=== PATIENT | female | born 1995 | race Hispanic/Latino ===

== ENCOUNTER 2020-06-18 09:50 | Outpatient (CLI) | payer OTHER ==
[2020-06-18 18:19] LABS: SARS-CoV-2 MS2 Positive; SARS-CoV-2 N Gene Negative; SARS-CoV-2 S Gene Negative; SARS-CoV-2 by NAA Not Detected (NotDetected); SARS-CoV-2 orf1ab Negative
== END 2020-06-18 09:51 | disposition home or self-care (01) ==
LOC: LABBT 09:50
PROVIDERS: ATTEND Obstetrics & Gynecology
DX: Z01.812 Encounter for preprocedural laboratory examination (principal); Z20.828 Contact with and (suspected) exposure to other viral communicable diseases
CPT/HCPCS: 87635; U0003

== ENCOUNTER 2020-06-21 09:07 | Day surgery (SDC) | payer OTHER ==
[2020-06-21 09:47] VITALS: BP 121/74; BMI 24.7
[2020-06-21] MEDS ORDERED: Iron Sucrose Complex 500 MG in Sodium Chloride 0.9% 250 ML 250 ML IVPB SCH (11:00)
[2020-06-21] MEDS ORDERED: Acetaminophen 500 MG TAB PO SCH (11:00)
== END 2020-06-21 15:53 | disposition home or self-care (01) ==
LOC: L&D/OP 09:07
PROVIDERS: ATTEND Obstetrics & Gynecology
DX: O99.013 Anemia complicating pregnancy, third trimester (principal); D64.9 Anemia, unspecified; Z3A.34 34 weeks gestation of pregnancy
CPT/HCPCS: 96361; 96365; 96366; 99282; J1756; J7050

== ENCOUNTER 2020-06-21 17:16 | Day surgery (SDC) | payer OTHER ==
[2020-06-21] MEDS ORDERED: hydrALAZINE 20 MG/ML VIAL SLOW IVP PRN (17:58)
--- NOTE | 2020-06-21 17:58 | PDOC.BPN ---
- Brief Progress Note Patient seen. See dictation. Stable for DC home.
--- NOTE | 2020-06-21 18:30 | PRG ---
DATE OF SERVICE: 06/21/2020 I evaluated the patient around 1740 until now. The patient is seen at bedside. CHIEF COMPLAINT: Small rash on her inner right ankle that is now resolved (this is after iron infusion earlier today). I evaluated this patient in LDR 6 along with Rosamaria, the patient's nurse. In brief, this patient called Labor and Delivery after she left Labor and Delivery around 1553 after IV iron infusion ordered by another physician. She received ferrous sucrose. This patient called because she was having a small rash on her inner ankle and she was concerned if this was normal or not. The nurse who took that call advised her to return to Labor and Delivery just for evaluation. The patient is clinically stable and there is no widespread rash and the rash that she initially saw on the ankle is now resolved. I did see the patient at bedside and she was in no acute distress. There was no contractions. No vaginal bleeding. So, I did not perform a pelvic exam. I asked our charge nurse if there was any specific protocol when patient return for rash after iron infusion and unaware of any, we opted to be conservative and just check her O2 saturation and her blood pressure. I discussed with family that receiving iron IV can trigger a small histamine release similar to blood products and can give a little rash at times, but she is in no acute distress or eminent risk based on the information that we have now. The patient and her family member voiced concern about getting another charge for this visit and I told him that I understood and that this was not a formal triage visit and that I would not submit any bill statement for this because this is just a well check after her IV iron infusion. Job ID: [id number]
== END 2020-06-21 18:01 | disposition home or self-care (01) ==
LOC: L&D/OP 17:16
PROVIDERS: ATTEND Obstetrics & Gynecology
DX: O99.891 Other specified diseases and conditions complicating pregnancy (principal); R21 Rash and other nonspecific skin eruption; Z3A.34 34 weeks gestation of pregnancy
CPT/HCPCS: 99281

== ENCOUNTER 2020-08-01 10:43 | Outpatient (CLI) | payer OTHER, SELFPAY ==
[2020-08-01 22:15] LABS: SARS-CoV-2 PCR by NAA Not Detected (NotDetected)
== END 2020-08-01 10:44 | disposition home or self-care (01) ==
LOC: LABBT 10:43
PROVIDERS: ATTEND Obstetrics & Gynecology
DX: Z01.812 Encounter for preprocedural laboratory examination (principal); Z20.822 Contact with and (suspected) exposure to COVID-19
CPT/HCPCS: 87635; U0003; U0005

== ENCOUNTER 2020-08-05 00:14 | Inpatient (IN) | payer OTHER, SELFPAY ==
[2020-08-05 01:18] VITALS: BMI 25.6
[2020-08-05] MEDS ORDERED: NS / Oxytocin 40 units/1000ml 1,000 ML IV PRN (03:49)
[2020-08-05] MEDS ORDERED: Lidocaine 1% (PF) 30 ML VIAL SC PRN (03:49)
[2020-08-05] MEDS ORDERED: HYDROcodone/Acetaminophen 5/325 mg Tablet PO PRN ×3 (03:49→19:38)
[2020-08-05] MEDS ORDERED: Ibuprofen 800 MG TAB PO PRN (03:49)
[2020-08-05] MEDS ORDERED: Promethazine HCl 25 MG/ML VIAL IM PRN ×4 (03:49→22:45)
[2020-08-05] MEDS ORDERED: Ondansetron PF 4 MG/2 ML Vial IVP PRN ×4 (03:49→22:45)
[2020-08-05] MEDS ORDERED: Butorphanol Tartrate 1 MG/ML VIAL SLOW IVP PRN (03:49)
[2020-08-05] MEDS ORDERED: hydrALAZINE 20 MG/ML VIAL SLOW IVP PRN ×2 (03:49→19:38)
--- NOTE | 2020-08-05 03:59 | PDOC.LDHP ---
Labor and Delivery H&P Chief complaint: contractions HPI: Patient of Dr Mcguire EGA: 40 weeks 3 days 25 yo SAB2 here with irregular CTX. CTX are every 3-7 minutes, irregular. Good FM, no vb, no LOF. No recent trauma. Denies issues. Was scheduled tomorrow ion office for balloon cervical ripening. Review of Systems: Complete ROS performed and as per HPI. General: no fevers, no chills Pulmonary: no SOB Cardio: no chest pain Neuro: no headaches or visual changes Extremities: no calf pain Current gestational age (weeks): 40 (3 days) Dating criteria: last menstrual period Grav: 3 Para: 0 OB History Details: SAB x 2...one with cytotec RX and the other spont passage Current complications: none Abnormal US findings: No Past Medical History: None Current medications: pre-colin vitamins Previous surgical history: none Allergies/Adverse Reactions: Allergies Allergy/AdvReac Type Severity Reaction Status Date / Time No Known Allergies Allergy Unverified 06/21/20 09:48 - Physical Exam Vital signs reviewed and normal: yes (130/70s 90s 18 afebrile) General: NAD, resting Lungs: nonlabored breathing Abdomen: gravid (s=d; EFW about 6 #) - Vaginal Exam cm dilated: 3 Effacement: 75% Station: -1 - Assessment L&D Assessment: term patient in labor (Full term, latent labor, irregular CTX. GBS neg) - Plan Plan: admit to L&D, labor augmentation if indicated (start at 0600), informed consent obtained, anesthesia consult for pain management, other (I will notify Dr Mcguire at 0600. I have seent he patient at bedside. POC reviewed with her and partner.)
[2020-08-05] MEDS: Lactated Ringer's 1,000 ML IV SCH ×5 (05:11→21:00)
[2020-08-05 05:17] LABS: Hemoglobin 9.5 g/dL (12.0-16.0); Mean Corpuscular HGB CONC 31.7 g/dL (32.0-36.0); Mean Corpuscular Hemoglobin 22.6 pg (27.0-31.0); Mean Corpuscular Volume 71.1 fL (78.0-98.0); Mean Platelet Volume 5.9 fL (7.4-10.4); Platelet Count 218 thou/uL (130-400); RBC Distribution Width 24.9 % (11.5-14.5); Red Blood Cell (RBC) Count 4.19 mill/uL (4.20-5.40); White Blood Cell (WBC) Count 10.4 thou/uL (4.8-10.8)
[2020-08-05 05:48] LABS: Syphilis Antibody Nonreactive (Nonreactive); Syphilis Antibody Index 0.02 S/CO (<1.00 Non-Reactive)
[2020-08-05 05:49] LABS: HBSAg Index 0.17 S/CO (0-0.99); HIV (1/2) Antibody/Antigen Non-Reactive (NonReactive); HIV 1/2 INDEX 0.08 S/CO (<1.00); Hep B Surf Ag Non-Reactive S/CO (NonReactive)
[2020-08-05] MEDS ORDERED: Fentanyl 4 mcg/Bup 0.1% Cadd 100 ML ONE (09:12)
[2020-08-05] MEDS ORDERED: Bupivacaine HCl 0.25%/Epi 0.0005/PF 10 ML VIAL FS ONE (09:48)
[2020-08-05] MEDS ORDERED: Bupivacaine/Epinephrine 0.5% 10 ML VIAL ONE (09:48)
[2020-08-05] MEDS ORDERED: Lactated Ringer's 500 ML IV PRN (10:09)
[2020-08-05] MEDS ORDERED: Acetaminophen 325 MG TAB PO PRN (10:09)
[2020-08-05] MEDS ORDERED: ePHEDrine 50 MG/ML VIAL SLOW IVP PRN (10:09)
[2020-08-05] MEDS ORDERED: Naloxone HCl 0.4 mg/ml Vial IVP PRN ×2 (10:09)
[2020-08-05] MEDS ORDERED: diphenhydrAMINE 50 MG/ML VIAL IVP PRN ×2 (10:09→22:45)
[2020-08-05] MEDS ORDERED: Fentanyl 4 mcg/Bupivacaine 0.1% Cassette 100 ML EPIDURAL SCH (10:15)
[2020-08-05] MEDS ORDERED: Communication Order-Pharmacy FS SCH (10:15)
[2020-08-05] MEDS ORDERED: Dextrose 5%-Lactated Ringers 1,000 ML IV SCH (15:30)
[2020-08-05] MEDS ORDERED: Bicitra 30 ML UDCUP PO PRN (16:38)
[2020-08-05] MEDS ORDERED: Famotidine/PF 20 mg/2ml Vial SLOW IVP PRN (16:38)
[2020-08-05] MEDS ORDERED: Azithromycin 500 MG VIAL ONE (16:50)
[2020-08-05] MEDS ORDERED: Bicitra 30 ML UDCUP ONE (16:50)
[2020-08-05] MEDS ORDERED: CEFAZOLIN 2 GM in Premix Bag 1 BAG IVPB SCH (17:00)
[2020-08-05] MEDS ORDERED: Azithromycin 500 MG in Sodium Chloride 0.9% 250 ML 250 ML IVPB SCH (17:00)
[2020-08-05] MEDS ORDERED: Morphine PF 10 MG/10 ML VIAL ONE (17:26)
[2020-08-05] MEDS ORDERED: Oxytocin 10 UNITS/ML VIAL ONE (17:27)
[2020-08-05] MEDS ORDERED: Ketorolac Tromethamine 30 MG/ML VIAL ONE (17:27)
[2020-08-05] MEDS ORDERED: Ondansetron PF 4 MG/2 ML Vial ONE (17:27)
[2020-08-05] MEDS ORDERED: Dexamethasone 4 mg/ml Vial ONE (17:27)
[2020-08-05] MEDS ORDERED: Fentanyl 100 MCG/2 ML VIAL ONE (17:33)
--- NOTE | 2020-08-05 17:36 | PRG ---
DATE OF SERVICE: 08/05/2020 TIME OF SERVICE: 1630 hours. SUBJECTIVE: Ms. Caicedo presented this morning in active labor. She had an AROM at approximately 0830 at 5 to 6 cm, 80% effaced, -1. She was noted to have thin meconium at that time. Since then with Pitocin, really never been able to get over more than 4 mU/min secondary to deceleration. She has had a couple of isolated incidents of prolonged variable decelerations, would return to baseline. She has had some accelerations and some prolonged periods of category II tracing. OBJECTIVE: On exam now, she is a 6 cm, 80%, and really -1 station. The infant seems to be occiput transverse and has really made essentially no progress in approximately 8 hours. IMPRESSION: 1. Failure to dilate at 6 cm. 2. Thin meconium. 3. Category II heart rate tracing . PLAN: We will go ahead and proceed with primary delivery. We will administer appropriate antibiotic prophylaxis plus Zithromax and Ancef and apply SCDs. The patient understands treatment plan. Job ID: [id number]
[2020-08-05] MEDS ORDERED: PHENYLEPHRINE-NS 100 MCG/ML 10 ML SYRINGE ONE (17:45)
[2020-08-05] MEDS ORDERED: Promethazine HCl 25 MG/ML VIAL ONE (17:46)
--- NOTE | 2020-08-05 18:31 | OP ---
DATE OF PROCEDURE: 08/05/2020 TIME OF SERVICE: 1745. PREOPERATIVE DIAGNOSES: 1. Failure to progress. 2. Thin meconium. 3. Category 2 heart rate tracing at term. POSTOPERATIVE DIAGNOSES: 1. Failure to progress. 2. Thin meconium. 3. Category 2 heart rate tracing at term. 4. Moderate to thick meconium noted at hysterotomy with nuchal cord x1. PROCEDURE PERFORMED: Primary low-transverse section without extension. DINKEY OPERATOR SLAG: Shyann England, PGY-3, ANESTHESIA: Epidural. QUANTITATIVE BLOOD LOSS: Pending. MEDICATIONS: 2 g Ancef and 500 of Zithromax preincision, DVT prophylaxis with SCDs. OPERATIVE FINDINGS: 1. Vigorous female , cephalic presentation, Apgars and weight pending, to nursery. 2. Meconium is noted. 3. Placenta delivered intact, grossly normal. 4. Normal-appearing uterus, tubes, and ovaries bilaterally. 5. Hemostasis. 6. Clear urine and correct counts at the end the procedure. DISPOSITION: Recovery room in good condition. DESCRIPTION OF PROCEDURE: After obtaining appropriate informed consent, she was taken to the operating room. She was prepped and draped. An epidural was dosed to appropriate level. A Pfannenstiel incision was made, carried down to the fascia in midline sharply, superiorly and laterally with curved Rebollar scissors. Rectus dissected off sharply, superiorly and inferiorly, divided in midline. Peritoneum entered bluntly, taking care to avoid trauma to the underlying vessels. Osvaldo O retractor was placed inside. Vesicouterine peritoneal fold was identified. Low-transverse hysterotomy was made at this level. The infant's head was noted to be really not engaged well in the pelvis. It was elevated to the hysterotomy with ease and the rest of the delivered, suctioned, cord clamped and cut, handed off the team in attendance. Usual cord blood sample obtained. Placenta removed manually. Uterus exteriorized, curetted out with a dry laparotomy sponge, and reintroduced in the abdominal cavity. The hysterotomy was noted to be without extension and closed using a running locking #1 Monocryl suture x1. Gutters were irrigated out bilaterally and reinspection of the hysterotomy revealed it to be dry. The Osvaldo O retractor was removed. The rectus was inspected, noted to be dry. The fascia was reapproximated using running continuous 0 PDS suture x2. Subcutaneous tissue irrigated, rendered hemostatic with Bovie cautery, reapproximated using a 2-0 plain gut. Skin was reapproximated using 4-0 Monocryl and Dermabond. The patient was entered into routine postoperative recovery. QBL pending. Job ID: [id number]
[2020-08-05] MEDS ORDERED: NS / Oxytocin 40 units/1000ml 1,000 ML IV SCH (19:38)
[2020-08-05] MEDS ORDERED: Meperidine HCl/PF 25 MG/ML VIAL IM PRN (19:38)
[2020-08-05] MEDS ORDERED: Simethicone Chewable 80 MG TAB PO PRN (19:38)
[2020-08-05] MEDS ORDERED: Zolpidem Tartrate 5 MG TAB PO PRN (19:38)
[2020-08-05] MEDS ORDERED: Lanolin Ointment 7 GM TUBE TOP PRN (19:38)
[2020-08-05] MEDS ORDERED: diphenhydrAMINE 25 MG CAP PO PRN (19:38)
[2020-08-05] MEDS ORDERED: Bisacodyl 10 MG SUPP PR PRN (19:38)
[2020-08-05] MEDS: Ibuprofen 800 MG TAB PO SCH (22:00)
[2020-08-05] MEDS: Docusate Calcium (SURFAK) 240 MG CAP PO SCH (22:00)
[2020-08-05] MEDS ORDERED: Ketorolac Tromethamine 30 MG/ML VIAL IVP PRN (22:40)
[2020-08-05] MEDS ORDERED: NO PO,IM,IV OR SC NARCOTICS FOR 12HR EXCEPT BY ANESTHESIA PO SCH (22:45)
[2020-08-05] MEDS ORDERED: Promethazine HCl 25 MG SUPP PR PRN (22:45)
[2020-08-05] MEDS ORDERED: Hydrocerin (Eucerin) Cream 120 gm Jar TOP PRN (22:45)
[2020-08-05] MEDS ORDERED: Naloxone HCl 0.4 mg/ml Vial IV PRN ×3 (22:45)
[2020-08-06] MEDS: Lactated Ringer's 1,000 ML IV SCH ×3 (04:00→21:48)
[2020-08-06] MEDS: Ibuprofen 800 MG TAB PO SCH ×3 (06:00→21:43)
[2020-08-06 07:53] LABS: Hemoglobin 5.9 g/dL (12.0-16.0); Mean Corpuscular HGB CONC 31.8 g/dL (32.0-36.0); Mean Corpuscular Hemoglobin 23.2 pg (27.0-31.0); Mean Corpuscular Volume 72.9 fL (78.0-98.0); Mean Platelet Volume 6.2 fL (7.4-10.4); Platelet Count 144 thou/uL (130-400); RBC Distribution Width 24.7 % (11.5-14.5); Red Blood Cell (RBC) Count 2.54 mill/uL (4.20-5.40); White Blood Cell (WBC) Count 13.2 thou/uL (4.8-10.8)
--- NOTE | 2020-08-06 08:52 | PRG ---
DATE OF SERVICE: 08/06/2020 TIME OF SERVICE: 08:15. SUBJECTIVE: Ms. Caicedo is resting comfortably. She states she feels good this morning. Mild discomfort. is going well. The was 7 pounds 1 ounce male and is at bedside with mother and father. OBJECTIVE: VITAL SIGNS: T-max 101.1 at 2200 a few hours postoperatively, temperature since then has been 98.6 to 98.3, pulse is 98, respirations 20, blood pressure 113/70. QBL overnight was approximately 950 mL total. Urine output was 400 mL on overnight shift. The patient weighed 140 pounds upon admission. LUNGS: Clear to auscultation bilaterally. HEART: Regular rate and rhythm. ABDOMEN: Soft, nontender. Bandage is dry. She has normal lochia. EXTREMITIES: No clubbing, cyanosis, or edema. LABORATORY DATA: Hematocrit went from 29.8 to 18.5, white count 13.2, and platelet counts 144. Suspicion is that part of the decrease in hematocrit is secondary to the patient's small volume of distribution with approximately 1000 mL QBL and the other part is likely somewhat delusional. It is well tolerated. ASSESSMENT: 1. Postoperative day #1 status post delivery. 2. Anemia secondary to acute blood loss. 3. Temperature 101 during the night, none since. PLAN: Discussed with the patient options regarding transfusion, considering that she is going to be going home and taking care of an , I recommended 1 unit of PRBCs, which she agreed to. We will go ahead and transfuse that within 3 to 4 hours. After that, we will administer 500 of IV iron to help the patient rebuild her own blood counts up to a normal level. The patient received 2 g of Ancef and 500 of Zithromax at the time of her delivery. No evidence on exam currently of metritis, so therefore we will not start any antibiotics at this time. If the patient has repeat febrile morbidity, we will begin broad-spectrum antibiotics. Anticipate probable discharge home 08/07 at 1800 versus 02/ a.m. Job ID: [id number]
[2020-08-06] MEDS ORDERED: Adacel (T-DAP) 0.5 ML SYRINGE IM ONE (09:00)
[2020-08-06] MEDS ORDERED: Iron, Sodium Ferric Gluconate 250 MG in Sodium Chloride 0.9% 100 ML IVPB SCH (09:00)
[2020-08-06] MEDS ORDERED: Sodium Chloride 0.9% 10 ML ONE ×2 (09:02→09:05)
[2020-08-06] MEDS: Docusate Calcium (SURFAK) 240 MG CAP PO SCH ×2 (10:09→21:44)
[2020-08-06] MEDS: Prenatal Vitamin 1 TAB PO SCH (10:10)
[2020-08-06] MEDS: HYDROcodone/Acetaminophen 5/325 mg Tablet PO PRN ×2 (13:25→17:46)
[2020-08-07] MEDS ORDERED: Iron, Sodium Ferric Gluconate 250 MG in Sodium Chloride 0.9% 100 ML IVPB SCH (03:00)
[2020-08-07] MEDS: Lactated Ringer's 1,000 ML IV SCH ×2 (04:00→11:35)
[2020-08-07] MEDS ORDERED: diphenhydrAMINE 12.5 MG/5 ML UDCUP PO PRN (05:21)
[2020-08-07] MEDS ORDERED: Hydrocodone-Acetamin 15 ML UDCUP PO PRN ×2 (05:24)
[2020-08-07] MEDS: Ibuprofen 100 MG/5 ML UDCUP PO SCH ×2 (05:32→13:38)
--- NOTE | 2020-08-07 09:35 | DIS ---
DATE OF ADMISSION: 08/05/2020 DATE OF DISCHARGE: 08/07/2020 SUMMARY OF HOSPITAL COURSE: Ms. Caicedo went into active labor post-term, progressed to about 5 to 6 cm and had failure to progress with no change management 8 hours. She underwent a primary delivery with delivery of a vigorous male , 7 pounds 1 ounce, 8 and 9 Apgars. QBL was approximately 1000 mL in the 24 hours post-delivery. She started out with iron deficiency anemia of with a hematocrit of 29%. Postoperative day #1, hematocrit was 18.5%. Platelet count was normal. The patient received 1 unit PRBCs and 500 mg of IV iron infusion. On postoperative day #2, her T-max was 98.8. PHYSICAL EXAMINATION: VITAL SIGNS: Temperature in the a.m. was 98.4, blood pressure 125/73, pulse 99. HEENT: Within normal limits. LUNGS: Clear to auscultation bilaterally. HEART: Regular rate and rhythm. ABDOMEN: Soft, nontender, nondistended. Incision intact and dry. : Normal lochia. EXTREMITIES: No clubbing, cyanosis, or edema. She desires discharge home. We will plan on discharge home at 1700 today. Discharge medications will be [place] and ibuprofen sent from her office, EHR. She will have followup in [address] [facility] [place]. Job ID: [id number]
[2020-08-07] MEDS: Prenatal Vitamin 1 TAB PO SCH (09:38)
[2020-08-07] MEDS: Docusate Calcium (SURFAK) 240 MG CAP PO SCH (09:38)
[2020-08-07 11:18] VITALS: BP 123/83; TEMP 98.3
== END 2020-08-07 17:20 | disposition home or self-care (01) | DRG 787 ==
LOC: L&D/OP 00:14 → L&D-LIB 04:22 → 3SW 21:34
PROVIDERS: ADMIT Obstetrics & Gynecology; ATTEND Obstetrics & Gynecology
PROC: 10D00Z1 Extraction of Products of Conception, Low, Open Approach (ICD-10-PCS; principal; 2020-08-05)
PROC: 10907ZC Drainage of Amniotic Fluid, Therapeutic from Products of Conception, Via Natural or Artificial Opening (ICD-10-PCS; 2020-08-05)
PROC: 30233N1 Transfusion of Nonautologous Red Blood Cells into Peripheral Vein, Percutaneous Approach (ICD-10-PCS; 2020-08-06)
DX: O48.0 Post-term pregnancy (principal); D62 Acute posthemorrhagic anemia; Z3A.40 40 weeks gestation of pregnancy; Z37.0 Single live birth; Z20.822 Contact with and (suspected) exposure to COVID-19; O77.0 Labor and delivery complicated by meconium in amniotic fluid; O69.81X0 Labor and delivery complicated by cord around neck, without compression, not applicable or unspecified; O90.81 Anemia of the puerperium; O62.0 Primary inadequate contractions; O76 Abnormality in fetal heart rate and rhythm complicating labor and delivery
CPT/HCPCS: 36415; 36430; 51702; 85027; 86780; 86850; 86900; 86901; 87340; 87389; 99285; J0690; J1100; J1885; J2270; J2405; J2550; J2916; J3010; J3490; P9016